=== PATIENT | female | born 1950 ===

== ENCOUNTER 2018-06-12 11:59 | Emergency (ER) | payer OTHER ==
[~2018-06-12] VITALS: Ht 154.9 cm; Wt 59.0 kg
[2018-06-12] MEDS ORDERED: COZAAR25 MG (12:06)
[2018-06-12] MEDS ORDERED: ALBUTEROL0.63 MG/3 IH (21:01)
[2018-06-12] MEDS ORDERED: PANTOPRAZOLE SO40 MG PO (21:01)
[2018-06-12] MEDS ORDERED: LEVAQUIN750 MG PO (21:01)
[2018-06-12] MEDS ORDERED: TESSALON PERLE100 M1 PO (21:01)
== END 2018-06-12 21:48 | disposition home or self-care (01) ==
LOC: ER 11:59
DX: J16.8 Pneumonia due to other specified infectious organisms (principal); M54.5 Low back pain; R05 Cough; N39.0 Urinary tract infection, site not specified; B96.29 Other Escherichia coli [E. coli] as the cause of diseases classified elsewhere